=== PATIENT | female | born 1960 | race Caucasian/White ===

== ENCOUNTER 2016-11-09 09:34 | Emergency (ER) | payer BC ==
[~2016-11-09] VITALS: Ht 170.2 cm; Wt 71.0 kg
[2016-11-09 09:36] VITALS: BP 127/60; PULSE 82; RESP 16; TEMP 97.9; O2SAT 99
[2016-11-09 09:53] VITALS: BP 149/88; PULSE 73; RESP 18; TEMP 98; O2SAT 97
[2016-11-09] MEDS ORDERED: SODIUM CHLOR 0.9% 1000 ML INJ 1,000 ML IV ONE (10:12)
[2016-11-09] MEDS ORDERED: PROCHLORPERAZINE INJ 10 MG/2 ML VIAL IVP ONE (10:15)
[2016-11-09] MEDS ORDERED: SODIUM CHLORIDE 0.9% FLUSH 5 ML FLUSH IVF PRN (10:15)
[2016-11-09] MEDS ORDERED: diphenhydrAMINE HCL 50 MG/ML VIAL IVP ONE (10:15)
[2016-11-09 10:30] VITALS: O2SAT 98
[2016-11-09 10:40] LABS: AUTOMATED NEUTROPHIL # 8.3 TH/MM3 (1.8-7.7); BASOPHIL % 0.4 % (0.0-2.0); EOSINOPHIL % 0.2 % (0.0-4.0); HEMATOCRIT 43.4 % (35.0-46.0); HEMO FLAGS DIFF FINAL; LYMPH % 12.9 % (9.0-44.0); LYMPHOCYTE # 1.3 TH/MM3 (1.0-4.8); MEAN CORPUSCULAR HEMOGLOBIN 29.4 PG (27.0-34.0); MEAN CORPUSCULAR HGB CONC 34.2 % (32.0-36.0); NEUT % 81.5 % (16.0-70.0); PLATELET COUNT 198 TH/MM3 (150-450); RED BLOOD COUNT 5.04 MIL/MM3 (4.00-5.30); RED CELL DISTRIBUTION WIDTH 13.6 % (11.6-17.2); WHITE BLOOD COUNT 10.2 TH/MM3 (4.0-11.0)
[2016-11-09 11:03] LABS: BICARBONATE 25.7 MEQ/L (21.0-32.0); POTASSIUM 3.7 MEQ/L (3.5-5.1)
--- NOTE | 2016-11-09 12:20 | RADRPT ---
EXAM DATE/TIME: 11/09/2016 11:46 [place] COMPARISON: No previous studies available for comparison. INDICATIONS : Dizziness. Cephalgia. MEDICAL HISTORY : None. SURGICAL HISTORY : Vitrectomy. ENCOUNTER: Initial ACUITY: 1 day PAIN SCORE: 4/10 LOCATION: cranial TECHNIQUE: Multiplanar, multisequence MRI of the brain was performed without contrast. FINDINGS: CEREBRUM: The ventricles are normal. No evidence of midline shift, mass lesion, hemorrhage or acute infarction . No extraaxial fluid collections are seen. The pituitary gland and suprasellar cistern are normal in configuration. WHITE MATTER: There is a single punctate subcortical area of white matter signal change in the left frontal lobe in the mid convexity. Otherwise, white matter is within normal limits POSTERIOR FOSSA: The cerebellum and brainstem demonstrate no acute finding. The 4th ventricle is midline. The cerebel lopontine angle is unremarkable. The cerebellar tonsils are normal in position. DIFFUSION IMAGING: No focal areas of restricted diffusion are seen. No evidence of acute infarction. EXTRACRANIAL: The visualized portions of the orbits and paranasal sinuses are unremarkable. CONCLUSION: No acute or significant intracranial abnormality is identified. Nathan Woods MD on November 09, 2016 at 12:16 Board Certified Radiologist. This report was verified electronically.
[2016-11-09] MEDS ORDERED: MECL-62 PO (12:30)
[2016-11-09] MEDS ORDERED: MEDR4PAK PO (12:30)
--- NOTE | 2016-11-09 12:30 | PD ---
HPI Chief Complaint: GI Complaint Time Seen by Provider: 09:45 Travel History International Travel<30 days: No Contact w/Intl Traveler<30days: No Traveled to known affect area: No History of Present Illness HPI Septic 56 year-old woman who presents to the emergency department complaining of waking up yesterday morning with vertigo and dizziness. She had mild to moderate headache at that same time as well. She's been vomiting. She is not able to keep food down. She's never really had similar symptoms. She is not prone to migraines. She states she has had an ocular migraine one time in the past. No stomach pain. No change in her bowel movements. No fevers or chills. No tinnitus, numbness, tingling, or other neurologic symptoms. She states she does see her vision sort of bouncing from side to side sometimes. She otherwise had been feeling generally well and healthy. History Past Medical History Narrative Medical GERD Tetanus Vaccination: < 5 Years Influenza Vaccination: Yes Social History Alcohol Use: No Tobacco Use: No Allergies-Medications (Allergen,Severity, Reaction): Coded Allergies: No Known Allergies (Unverified , 11/09/16) Review of Systems Except as stated in HPI: all other systems reviewed are Neg Physical Exam Narrative GENERAL: Well-appearing 56 year-old woman, no acute distress. SKIN: Warm and dry. HEAD: Atraumatic. Normocephalic. EYES: Pupils equal and round. No scleral icterus. No injection or drainage. Left beating nystagmus. ENT: No nasal bleeding or discharge. Mucous membranes pink and moist. NECK: Trachea midline. No JVD. CARDIOVASCULAR: Regular rate and rhythm. No murmur appreciated. RESPIRATORY: No accessory muscle use. Clear to auscultation. Breath sounds equal bilaterally. GASTROINTESTINAL: Abdomen soft, non-tender, nondistended. Hepatic and splenic margins not palpable. MUSCULOSKELETAL: No obvious deformities. No clubbing. No cyanosis. No edema. NEUROLOGICAL: Awake and alert. No facial asymmetry. She is left beating nystagmus. EOMs are full. She has full strength upper and lower extremities. Sensation intact to light touch and symmetric in both upper and lower extremities. Normal finger to nose. Normal heel to brooks. No bidirectional nystagmus. No vertical skewed deviation. She has an appropriately abnormal head impulse test. PSYCHIATRIC: Appropriate mood and affect; insight and judgment normal. Data Data Last Documented VS Vital Signs Date Time Temp Pulse Resp B/P Pulse Ox O2 Delivery O2 Flow Rate FiO2 11/09/16 10:30 98 Room Air 11/09/16 09:57 11/09/16 09:53 98.0 73 18 Orders Mri Brain W/O Contrast (11/09/16 ) Complete Blood Count With Diff (11/09/16 10:12) Basic Metabolic Panel (Bmp) (11/09/16 10:12) Ecg Monitoring (11/09/16 10:12) Iv Access Insert/Monitor (11/09/16 10:12) Oximetry (11/09/16 10:12) Sodium Chloride 0.9% Flush (Ns Flush) (11/09/16 10:15) Prochlorperazine Inj (Compazine Inj) (11/09/16 10:15) Diphenhydramine Inj (Benadryl Inj) (11/09/16 10:15) Sodium Chlor 0.9% 1000 Ml Inj (Ns 1000 M (11/09/16 10:12) Labs Laboratory Tests Test 11/09/16 10:01 White Blood Count 10.2 TH/MM3 Red Blood Count 5.04 MIL/MM3 Hemoglobin 14.8 GM/DL Hematocrit 43.4 % Mean Corpuscular Volume 86.0 FL Mean Corpuscular Hemoglobin 29.4 PG Mean Corpuscular Hemoglobin 34.2 % Concent Red Cell Distribution Width 13.6 % Platelet Count 198 TH/MM3 Mean Platelet Volume 10.0 FL Neutrophils (%) (Auto) 81.5 % Lymphocytes (%) (Auto) 12.9 % Monocytes (%) (Auto) 5.0 % Eosinophils (%) (Auto) 0.2 % Basophils (%) (Auto) 0.4 % Neutrophils # (Auto) 8.3 TH/MM3 Lymphocytes # (Auto) 1.3 TH/MM3 Monocytes # (Auto) 0.5 TH/MM3 Eosinophils # (Auto) 0.0 TH/MM3 Basophils # (Auto) 0.0 TH/MM3 CBC Comment DIFF FINAL Differential Comment Sodium Level 141 MEQ/L Potassium Level 3.7 MEQ/L Chloride Level 106 MEQ/L Carbon Dioxide Level 25.7 MEQ/L Anion Gap 9 MEQ/L Blood Urea Nitrogen 17 MG/DL Creatinine 0.87 MG/DL Estimat Glomerular Filtration 67 ML/MIN Rate Random Glucose 109 MG/DL Calcium Level 9.2 MG/DL [facility] Medical Decision Making Medical Screen Exam Complete: Yes Emergency Medical Condition: Yes Interpretation(s) LABS: CBC is unremarkable BMP is unremarkable MRI is negative Differential Diagnosis Vestibular neuritis, vestibular migraine, CVA, other Narrative Course Medical decision making Is a 56 year-old woman presents to the emergency department with 24 hours of vertigo dizziness and vomiting associated with some headache. Exam is suggestive of a peripheral etiology for her symptoms. MRI is negative for stroke. Recommend supportive treatment. Diagnosis Primary Impression: Acute vestibular neuritis Qualified Code: H81.20 - Acute vestibular neuritis, unspecified laterality Patient Instructions: General Instructions Additional Instructions: Take prednisone taper as prescribed. Follow-up with your primary physician in 2-4 days. Use Antivert as needed for the next 48 hours. Return to the emergency department for any new or worsening symptoms. Med/Other Pt SpecificInfo: Prescription(s) given Scripts Meclizine 25 Mg Tab25 Mg PO TID PRN (VERTIGO) #6 TAB Ref 0 Prov:Juanjo Mckenzie MD 11/09/16 Methylprednisolone Dosepak (Medrol Dosepak)4 Mg Dspk4 Mg PO DIRECTED #1 DSPK Ref 0 Per Pharmacist direction Prov:Juanjo Mckenzie MD 11/09/16 Disposition: 01 DISCHARGE HOME Condition: Stable Juanjo Mckenzie MD Nov 09, 2016 12:30
[2016-11-09 13:18] VITALS: BP 118/72
== END 2016-11-09 13:31 | disposition home or self-care (01) ==
LOC: NEPE 09:34
DX: H81.20 Vestibular neuronitis, unspecified ear (principal); R51 Headache
CPT/HCPCS: 70551; 80048; 85025; 96374; 96375; 99284; J0780; J1200; J7030